=== PATIENT | male | born 1955 | race Caucasian/White ===

== ENCOUNTER 2017-11-04 08:57 | Day surgery (SDC) | payer BC ==
[~2017-11-04 08:57] MED LIST: Lactated Ringers 1,000 ML IV SCH; Lidocaine 1% 4 ML ONE; Lidocaine 1%/Sod Bicarbonate in NS 8.4% 1 ML Syringe PRN; Propofol 200 MG/20 ML SDV ONE; Sodium Chloride 0.9% 10 ML Syringe FLUSH PRN
--- NOTE | 2017-11-04 09:34 | PCM.PREANE ---
Preanesthetic Assessment - Procedure Proposed Procedure: Excision of basal cell carcinoma L cheek with frozen section - Anesthesia/Transfusion/Family Hx Anesthesia History: Prior Anesthesia Without Reaction Family History of Anesthesia Reaction: No Transfusion History: No Prior Transfusion(s) Additional History: Factor 5 deficiency - Review of Systems General: No Symptoms Pulmonary: No Symptoms Cardiovascular: No Symptoms (HTN, HLD, ) Gastrointestinal: No Symptoms Neurological: No Symptoms Other: Reports: None - Physical Assessment NPO Status Date: 11/03/17 NPO Status Time: 20:00 Pulse: 50 O2 Sat by Pulse Oximetry: 100 Respiratory Rate: 16 Blood Pressure: 119/82 Temperature: 36.3 C Height: 1.8 m Weight: 90.265 kg ASA Class: 2 Mental Status: Alert & Oriented x3 Airway Class: Mallampati = 3 Dentition: Reports: Normal Dentition Thyro-Mental Finger Breadths: 3 Mouth Opening Finger Breadths: 3 ROM/Head Extension: Full Lungs: Clear to Auscultation, Normal Respiratory Effort Cardiovascular: Regular Rate, Regular Rhythm - Allergies Allergies/Adverse Reactions: Allergies Allergy/AdvReac Type Severity Reaction Status Date / Time No Known Allergies Allergy Verified 11/01/17 10:16 - Blood Blood Available: No Product(s) Available: None - Anesthesia Plan Pre-Op Medication Ordered: None - Acknowledgements Anesthesia Type Planned: MAC Pt an Appropriate Candidate for the Planned Anesthesia: Yes Alternatives and Risks of Anesthesia Discussed w Pt/Guardian: Yes Pt/Guardian Understands and Agrees with Anesthesia Plan: Yes PreAnesthesia Questionnaire Cardiovascular History: Reports: High Cholesterol, Hypertension Musculoskeletal History: Reports: Gout Hematologic History: Reports: Other (See Below) Other Hematologic History: hx dvt, hx blood clot, factor V - Past Surgical History GI Surgical History: Reports: Colonoscopy Male Surgical History: Reports: Vasectomy Dermatological Surgical History: Reports: Skin Biopsy - SUBSTANCE USE Smoking Status *Q: Former Smoker Second Hand Smoke Exposure: No Recreational Drug Use History: No - HOME MEDS Home Medications: Home Meds Flaxseed/Omega3,6,9/Fatty Acid [Flax Seed Oil 1,300 mg Softgel] 1 cap PO DAILY 11/01/17 [History] Multivitamin [Multivitamins] 1 cap PO DAILY 11/01/17 [History] Sildenafil [Revatio] 20 mg PO ASDIRECTED PRN 01/05/18 [History] Valsartan 160 mg PO DAILY 11/01/17 [History] - CURRENT (IN HOUSE) MEDS Current Meds: Current Medications Lactated Ringer's (Ringers, Lactated) 1,000 mls @ 125 mls/hr IV ASDIRECTED VIVI Stop: 11/04/17 23:00 Lidocaine/Sodium Bicarbonate (Buffered Lidocaine 1% In Ns 8.4%) 0.25 ml .XX ONETIME PRN PRN Reason: Prior to IV Start Stop: 11/04/17 18:00 Sodium Chloride (Saline Flush) 10 ml FLUSH ASDIRECTED PRN PRN Reason: Keep Vein Open Stop: 11/04/17 18:00 Discontinued Medications Lidocaine HCl (Xylocaine-Mpf 1%) Confirm Administered Dose 4 mls @ as directed .ROUTE .STK-MED ONE Stop: 11/04/17 08:33 Propofol (Diprivan 20 Ml) Confirm Administered Dose 600 mg .ROUTE .STK-MED ONE Stop: 11/04/17 08:31
[2017-11-04] MEDS ORDERED: Bacitracin Oint 15 GM Tube ONE (09:35)
[2017-11-04] MEDS ORDERED: Lidocaine 1% 30 ML SDV ONE (09:36)
[2017-11-04] MEDS ORDERED: fentaNYL 100 MCG/2 ML SDV ONE (09:56)
[2017-11-04] MEDS ORDERED: Midazolam 1 MG/ML 2 ML SDV ONE (09:56)
[2017-11-04] MEDS ORDERED: Ketamine 500 mg/10 ML MDV ONE (09:56)
[2017-11-04] MEDS ORDERED: Ondansetron 4 MG/2 ML SDV ONE (10:16)
[2017-11-04] MEDS ORDERED: Propofol 200 MG/20 ML SDV ONE (11:26)
--- NOTE | 2017-11-04 11:41 | PCM.OPNOTE ---
- General Post-Op/Procedure Note Date of Surgery/Procedure: 11/04/17 Operative Procedure(s): re excision of basal cell cancer left cheek with positive margins under frozen section dontrol Pre Op Diagnosis: basal cancer of the left cheek Post-Op Diagnosis: Same Anesthesia Technique: MAC Primary Surgeon: Arnaud Cifuentes EBL in mLs: 3 Complications: None Condition: Good
[2017-11-04] MEDS ORDERED: fentaNYL 100 MCG/2 ML SDV IVPUSH PRN (11:49)
--- NOTE | 2017-11-04 11:49 | PCM48HPAN ---
Post Anesthesia Note - EVALUATION WITHIN 48HRS OF ANESTHETIC Vital Signs in Normal Range: Yes Patient Participated in Evaluation: Yes Respiratory Function Stable: Yes Airway Patent: Yes Cardiovascular Function Stable: Yes Hydration Status Stable: Yes Pain Control Satisfactory: Yes Nausea and Vomiting Control Satisfactory: Yes Mental Status Recovered: Yes
--- NOTE | 2017-11-05 10:17 | OR ---
DATE OF OPERATION: 11/04/2017 SURGEON: Arnaud Cifuentes MD PREOPERATIVE DIAGNOSIS: Basal cell carcinoma of the left cheek with positive posterior margins. POSTOPERATIVE DIAGNOSIS: Basal cell carcinoma of the left cheek with positive posterior margins. PROCEDURE: Re-excision under frozen section control and layered closure. FINDINGS: Ellipse of skin removed was 2 x 4.5 cm. ANESTHESIA: Under IV sedation, local anesthetic 1% Xylocaine with epinephrine. DESCRIPTION OF PROCEDURE: The patient was taken to the operating room, placed in a supine position, connected to the monitoring equipment, and given IV sedation. A previous incision was noted on the left cheek. Having been marked, it was then prepped with Betadine, draped off in a sterile fashion, and incisional lines were traced around the previous incision to conform with Dinah's lines. This was then anesthetized with 1% Xylocaine. An elliptical incision was then performed and measured. This went into the subcuticular tissue. This was then sent for frozen section which proved the margins were clear. The skin edges were then undermined and brought together with interrupted 4-0 Vicryl suture and the skin with interrupted 5-0 Prolene suture. Sterile dressing was placed. The patient tolerated the procedure and was sent to the recovery room in a stable condition and will be followed up in the clinic. ESTIMATED BLOOD LOSS: 3 mL. MMODAL /[id number]
== END 2017-11-04 12:30 | disposition home or self-care (01) ==
LOC: JD.SDS 08:57
PROVIDERS: ATTEND Surgery
DX: C44.319 Basal cell carcinoma of skin of other parts of face (principal); I10 Essential (primary) hypertension; E78.5 Hyperlipidemia, unspecified; Z87.891 Personal history of nicotine dependence; Z79.01 Long term (current) use of anticoagulants; Z79.899 Other long term (current) drug therapy
CPT/HCPCS: 11646; 12052; A9270; J2250; J2405; J3010; J7120; 00300; J2001; J2704

== ENCOUNTER 2025-09-10 09:57 | Emergency (ER) | payer OTHER | END 2025-09-10 11:45 | disposition home or self-care (01) | LOC: JD.ED 09:57 | DX: M19.072 Primary osteoarthritis, left ankle and foot (principal); M79.89 Other specified soft tissue disorders; Z79.899 Other long term (current) drug therapy; Z90.79 Acquired absence of other genital organ(s) | CPT/HCPCS: 93971-26-LT; 93971-LT; 99283 ==